=== PATIENT | male | born 1980 | race Caucasian/White ===

== ENCOUNTER → 2018-03-24 10:39 | Outpatient (CLI) | payer MEDICARE ==
[2016-09-03 12:40] VITALS: BMI 40.2
[~2018-03-24 10:39] MED LIST: CELEXA20 MG PO; PROTONIX40 MG PO; TEGRETOL 100 M100 MG PO
== END | disposition home or self-care (01) ==
LOC: D.CT 10:39
DX: R10.9 Unspecified abdominal pain (principal)

== ENCOUNTER → 2018-07-21 11:15 | Outpatient (CLI) | payer MEDICARE ==
[~2018-07-21] VITALS: Ht 177.8 cm; Wt 129.5 kg
--- NOTE | ~2018-07-21 | OP ---
PATIENT NAME: JOHAN JAY MEDICAL RECORD: [id number] :82 LOCATION:D.CAT ADMISSION DATE: SURGEON: KHRIS NO MD DATE OF OPERATION: 07/21/2018 PROCEDURES: Left heart catheterization, selective coronary angiography, post-intervention of right radial approach. CATHETERS: Include Clarington catheter and radial sheath. The procedure was tolerated. The patient returned to the ho. Sheath was removed. TR band was placed. FINDINGS: Left ventriculography in 30-degree JOSE view: Normal wall motion. Normal systolic function. CORONARY ANATOMY: For the left system, please note we had to use 4.0 guiding catheter for diagnostic. LEFT MAIN: Left main is free of disease. LAD: Free of disease in the diagonal system. CIRCUMFLEX: Free of disease in the marginal system. RIGHT CORONARY ARTERY: We were able to perform diagnostic using the Clarington catheter and this showed 80% stenosis in its proximal portion. IMPRESSION: Single-vessel disease involving right coronary. PLAN: Intervention of this vessel momentarily. Using the radial sheath, a [place] guiding catheter provided excellent guide catheter support followed by 300-cm Whisper wire was placed across the tightly occluded 80% right coronary down this portion of the vessel. Next, stent used was a 3.0 x 15-mm Integrity nondrug-eluting stent up to 14 atmospheres for 45 seconds. Final angiography showed excellent resolution of 80% stenosis with no significant residual. OLIVER flow was 3 throughout the procedure. Brilinta was loaded in the lab. Sheath was closed with TR band. TRANSINT:[id number] Voice Confirmation ID: [id number] DOCUMENT ID: [id number] KHRIS NO MD at 0843 CC: [id number] DICTATION DATE: 07/21/18 1506 STAINING MACHINE OPERATOR: 07/21/18 1600 DEP CLI 07/21/18 [address] [place] [address]
--- NOTE | ~2018-07-21 | HEMODYNAMI ---
PATIENT:JOHAN JAY MEDICAL RECORD: [id number] : 82 LOCATION:[facility] ADMISSION DATE: 07/21/18 Generatedon:07/21/201815:00 Patient name: JOHAN JAY Patient #: [id number] SSN: D OB: 1980 Date of study: 07/21/2018 Page: Of Hemodynamic Procedure Report Patient Data Patient Demographics Procedure consent was obtained First Name: JOHAN Gender: Male Last Name: PIERRE : 1980 Middle Initial: L Age: 38 year(s) Patient #: [id number] Race: Unknown Additional ID: [id number] Contact details [address]: [address] [place] [address] State: [place] City: [place] Zip code: [address] Past Medical History Allergies Allergen Reaction Date Comments Reported Codeine 09/03/2016 Codeine 07/21/2018 Admission Admission Data Admission Date: 07/21/2018 Admission Time: 11:15 Procedure Procedure Types Cath Procedure Diagnostic Procedure LHC LH w/Coronaries PCI Procedure Coronary Stent Coronary Stent Initial Procedure Description Procedure Date Procedure Date: 07/21/2018 Procedure Start Time: 14:31 Procedure End Time: 14:59 Procedure Staff Name Function Blayne Armenta MD Performing Physician Marie Kong RT Monitor Vish Thomas RN Nurse Karin Banks RT Scrub Procedure Data Cath Procedure Fluoroscopy Diagnostic fluoroscopy Total fluoroscopy Time: 7.4 time: 7.4 min min Diagnostic fluoroscopy Total fluoroscopy dose: dose: 1019 mGy 1019 mGy Contrast Material Contrast Material Type Amount (ml) Isovue 300 91 Entry Location Entry Primary Successful Side Size Upsize Upsize Entry Closure Telles ccessful Closure Location (Fr) 1 (Fr) 2 (Fr) Remarks Device Remarks Radial Right 6 Fr Mechanical artery Short Compression Estimated blood loss: 10 ml Diagnostic catheters Device Type Used For End Catheter Placement DIAGNOSTIC [place] 110cm 5 LV Angiography Fr catheter ([id number]) DIAGNOSTIC [place] 110cm 5 Right Coronary Fr catheter (196627) Angiography DIAGNOSTIC [place] 110cm 5 Left Coronary Fr catheter ([id number]) Angiography Procedure Complications No complications Procedure Medications Medication Administration Route Dosage 0.9% NaCl I.V. 100 ml/hr Oxygen etCO2 Nasal cannula 2 l/min Heparin Flush Bag added to field 2 bags (1000units/500ml NS) Lidocaine 2% added to field 20 Radial Cocktail added to field 1 syringe (Verapomil 2mg/Nitro 400mcg/Heparin 1500units) Refer to Anesthesia Notes for Sedation Medications Radial Cocktail I.A. 1 syringe (Verapomil 2mg/Nitro 400mcg/Heparin 1500units) Heparin Bolus I.V. 5000 units Integrilin (Bolus I.V. 11.3 ml 2mg/ml) Integrilin (Bolus wasted 8.7 ml 2mg/ml) Brilinta P.O. 180 mg Hemodynamics Rest Heart Rate: 88 (bpm) Pressure Samples Time Site Value (mmHg) Purpose Heart Use Rate(bpm) 14:35 LV 98/18,16 Snapshot 103 Gradients Valve Time Site Site Mean SEP/DFP Peak To Heart Use 1 2 (mmHg) (sec/min) Peak Rate (mmHg) (bpm) Aortic 14:35 LV AO 108 Snapshots Pre Cath Intra NCS Post Cath Vital Signs Time Heart Resp SPO2 etCO2 NIBP (mmHg) Rhythm Pain Sedation Rate (ipm) (%) (mmHg) Status Level (bpm) 14:04:37 81 13 100 30.8 102/68(81) NSR 0 (11) 10(A) , No pain 14:09:52 82 17 100 38.3 131/86(112) NSR 0 (11) 10(A) , No pain 14:14:37 87 15 98 42 121/76(107) NSR 0 (11) 10(A) , No pain 14:19:17 82 12 98 39.7 129/87(115) NSR 0 (11) 10(A) , No pain 14:24:00 81 19 98 21.7 138/87(113) NSR 0 (11) 10(A) , No pain 14:28:45 80 18 97 0 136/90(118) NSR 0 (11) 10(A) , No pain 14:33:34 110 11 98 20.2 97/62(79) NSR 0 (11) 9(A) , No pain 14:38:10 109 12 89 19.5 104/69(79) NSR 0 (11) 8(A) , No pain 14:42:53 106 13 89 18.7 107/58(79) NSR 0 (11) 8(A) , No pain 14:47:33 104 13 92 0 99/60(89) NSR 0 (11) 8(A) , No pain 14:52:14 101 12 95 10.5 101/51(78) NSR 0 (11) 10(A) , No pain 14:57:37 96 15 98 15 106/65(81) NSR 0 (11) 10(A) , No pain Medications Time Medication Route Dose Verified Delivered Reason Not es Effectiveness by by 14:02:29 0.9% NaCl I.V. 100 Vish Vish Per physician ml/hr William Thomas RN RN 14:02:40 Oxygen etCO2 2 l/min Vish Vish Per physician Nasal William Thomas cannula RN RN 14:02:51 Heparin Flush added 2 bags Vish Vish used for Bag to Lorvinny Lorvinny procedure (1000units/500ml field RN RN NS) 14:03:07 Lidocaine 2% added 20ml Vish Vish for local to vial Lorigan Lorigan anesthetic field RN RN 14:03:20 Radial Cocktail added 1 Vish Vish used for (Verapomil to syringe Lorigan Lorigan procedure 2mg/Nitro field RN RN 400mcg/Heparin 1500units) 14:29:29 Refer to Vish Vish for sedation Anesthesia Notes William Thomas for Sedation RN RN Medications 14:32:02 Radial Cocktail I.A. 1 Vish Blayne for (Verapomil syringe Lorigan Geovany vasodilation 2mg/Nitro RN 400mcg/Heparin 1500units) 14:49:16 Heparin Bolus I.V. 5000 Vish Vish for units Tatyanaigan William anticoagulation RN RN 14:49:34 Integrilin I.V. 11.3 ml Vish Vish for (Bolus 2mg/ml) Lorigan William antiplatelet RN RN therapy 14:49:51 Integrilin wasted 8.7 ml Vish Vish to sharp's (Bolus 2mg/ml) William Thomas RN RN 14:54:56 Brilinta P.O. 180 mg Vish Vish for Lorigan William antiplatelet RN RN therapy Procedure Log Time Note 13:43:04 Vish Thomas RN sent for patient. Start room use. 13:43:05 Time tracking: Regular hours (M-F 7:00 - 5:00) 13:43:09 Plan of Care:Hemodynamics will remain stable., Cardiac rhythm will remain stable., Comfort level will be maintained., Respiratory function will remain adequate., Patient/ family verbilizes understanding of procedure., Procedure tolerated without complication., Recovers from procedure without complications.. 13:52:41 Patient received from Pre/Post Procedure Room to CCL 1 Alert and oriented. Tansferred to table in Supine position. 13:52:43 Warm blankets applied, and florence hugger turned on for patient comfort. 13:52:43 Correct patient and procedure confirmed by team. 13:52:45 Signed procedure consent form obtained from patient. 13:52:46 ECG and BP/O2 sat monitors applied to patient. 13:52:47 Full Disclosure recording started 13:53:33 H&P Date Dictated: 07/14/2018 Within 30 days and on chart., H&P Addendum completed by physician on day of procedure. (MUST COMPLETE FOR ALL OUTPATIENTS). 14:02:29 0.9% NaCl 100 ml/hr I.V. was administered by Vish Thomas RN; Per physician; 14:02:40 Oxygen 2 l/min etCO2 Nasal cannula was administered by Vish Thomas RN; Per physician; 14:02:51 Heparin Flush Bag (1000units/500ml NS) 2 bags added to field was administered by Vish Thomas RN; used for procedure; 14:03:07 Lidocaine 2% 20ml vial added to field was administered by Vish Thomas RN; for local anesthetic; 14:03:20 Radial Cocktail (Verapomil 2mg/Nitro 400mcg/Heparin 1500units) 1 syringe added to field was administered by Vish Thomas RN; used for procedure; 14:03:26 Vital chart was started 14:07:41 Rhythm: sinus rhythm 14:07:44 Pre-procedure instructions explained to patient. 14:07:44 Pre-op teaching completed and patient verbalized understanding. 14:07:47 Family in patients room. 14:07:48 Patient NPO since Midnight. 14:07:56 Patient allergic to Codeine 14:07:59 Is the patient allergic to Iodine/contrast media? No. 14:08:02 Is patient on blood thinner?No 14:08:06 Patient diabetic? No. 14:08:43 ----Pre-sedation anethsthesia assessment.---- 14:09:31 SEE ANESTHESIA NOTES FOR PRE ASSESSMENT 14:09:35 Pre procedure: right dorsailis pedis pulse 2+ Normal; easily identifiable; not easily obliterated 14:09:38 Modified Josiah's test Ulnar < 7 seconds 14:09:40 Patient pain scale 0/10 ?. 14:09:48 IV patent on arrival in left forearm with 0.9% NaCl at O. 14:09:56 Lab results completed and on chart. 14:10:05 Right Radial & Right Groin area was prepped with chlora-prep and draped in sterile fashion 14:10:06 Alarms reviewed by R. N. 14:10:06 Sharps counted by scrub and verified by R.N. 14:10:13 Zero performed for pressure channel P1 14:10:21 Baseline sample Acquired. 14:10:40 Use device set Radial Dx or PCI 14:10:41 ACIST Syringe (02008) opened to sterile field. 14:10:42 Medline Cath Pack ([id number]) opened to sterile field. 14:10:42 Bag Decanter (2002) opened to sterile field. 14:10:43 DIAGNOSTIC WIRE .035 260cm J wire (936606) opened to sterile field. 14:10:44 ACIST Hand Control (58545) opened to sterile field. 14:10:44 ACIST Manifold (39257) opened to sterile field. 14:10:45 Tegaderm 4 x 4 (1626W) opened to sterile field. 14:10:46 MBrace Wrist Support ([id number]) opened to sterile field. 14:10:47 SHEATH 6Fr Prelude Radial ([id number]) opened to sterile field. 14:28:21 Final Timeout: patient, procedure, and site verified with staff and physician. All members of the team are in agreement. 14:28:28 Right Radial site verified by team. 14:28:31 Physical assessment completed. ASA score P 2 - A patient with mild systemic disease as per Blayne Armenta MD. 14:28:34 Sedation plan: IV Moderate Sedation Medication:Versed, Fentanyl 14:29:29 Refer to Anesthesia Notes for Sedation Medications was administered by Vish Thomas RN; for sedation; 14:30:59 Procedure started. 14:31:04 Local anesthetic to right radial artery with Lidocaine 2% by Blayne Armenta MD.INITIAL ACCESS ONLY 14:31:49 A 6 Fr Short sheath was inserted into the Right Radial artery 14:32:02 Radial Cocktail (Verapomil 2mg/Nitro 400mcg/Heparin 1500units) 1 syringe I.A. was administered by Blayne Armenta MD; for vasodilation; 14:32:47 A DIAGNOSTIC [place] 110cm 5 Fr catheter (641647) was advanced over the wire and used for LV Angiography. 14:35:35 LV gram done using JOSE 14:35:40 EF : 55 % 14:35:48 Injector settings: Ml/sec: 10, Volume: 20, 14:36:34 A DIAGNOSTIC [place] 110cm 5 Fr catheter (293501) was advanced over the wire and used for Right Coronary Angiography. 14:37:53 A DIAGNOSTIC [place] 110cm 5 Fr catheter (621024) was advanced over the wire and used for Left Coronary Angiography. UNABLE TO CANNULATE 14:37:54 Catheter removed. 14:38:49 GUIDE 6FR EBU 3.5 catheter ([id number]) opened to sterile field. 14:38:59 6 Fr EBU 3.5 guide catheter was inserted over the wire 14:40:42 Guide Catheter removed. unable to cannulate vessel. 14:40:52 6 Fr EBU 4.0 guide catheter was inserted over the wire 14:41:04 GUIDE 6FR EBU 4.0 guide catheter ([id number]) opened to sterile field. 14:44:59 LCA angiography performed. 14:46:18 Guide catheter removed. 14:46:[address] [place] PCI 14:46:57 GUIDE 6FR HS II catheter ([id number]) opened to sterile field. 14:46:59 INFLATOR Merit BasixCompak (DI0029) opened to sterile field. 14:47:01 WHISPER 300cm guide wire ([id number]) opened to sterile field. 14:47:31 6 Fr HS II guide catheter was inserted over the wire 14:49:16 Heparin Bolus 5000 units I.V. was administered by Vish Thomas RN; for anticoagulation; 14:49:26 WHISPER wire advanced. 14:49:34 Integrilin (Bolus 2mg/ml) 11.3 ml I.V. was administered by Vish Thomas RN; for antiplatelet therapy; 14:49:51 Integrilin (Bolus 2mg/ml) 8.7 ml wasted was administered by Vish Thomas RN; to sharp's; 14:51:40 Place stent Inflation Number: 1 A INTEGRITY OTW 3.0 X 12 stent ([id number]) was prepped and advanced across the Mid RCA. The stent was deployed at 14 RENARD for 0:26 (min:sec). 14:52:04 Stent catheter was removed intact over wire. 14:52:05 Wire removed. 14:52:05 Guide catheter removed. 14:52:16 Sheath removed intact; hemostasis achieved with Mechanical Compression to the Right Radial artery. 14:52:17 Procedure ended.(Physican Out) 14:52:29 TR BAND Large ([id number]) opened to sterile field. 14:52:34 Fluoroscopy time 07.40 minutes. 14:52:38 Flurop Dose total: 1019 14:52:38 Fluoroscopy dose: 1019 mGy 14:52:41 Contrast amount:Isovue 300 91ml. 14:52:42 Sharps counted by scrub and verified by R.N. 14:52:44 TR band inflated with 11cc of air. 14:52:45 Insertion/operative site no bleeding no hematoma. 14:52:54 Post right radial artery:stable, clean and dry 14:52:57 Post Procedure Pulses reassessed and unchanged 14:53:00 Post-procedure physical assessment completed. ASA score P 2 - A patient with mild systemic disease as per Blayne Armenta MD. 14:53:02 Post procedure rhythm: unchanged. 14:53:05 Estimated blood loss: 10 ml 14:53:06 Post procedure instruction explained to patient.Patient verbalizes understanding. 14:53:06 Patient needs reinforcement of post procedure teaching. 14:53:15 Procedure type changed to Cath procedure, Diagnostic procedure, LHC, LHC w/Coronaries, PCI procedure, Coronary Stent, Coronary Stent Initial 14:53:20 Procedure Complication : No complications 14:53:23 See physician's report for complete and final results. 14:54:56 Brilinta 180 mg P.O. was administered by Vish Thomas RN; for antiplatelet therapy; 14:55:16 Procedure and supply charges have been captured, reviewed, submitted and are correct. 14:59:46 Vital chart was stopped 14:59:49 Report given to Pre/Post Procedure Room. 14:59:52 Patient transfered to Pre/Post Procedure Room with Stretcher. 14:59:58 Procedure ended. 14:59:58 Full Disclosure recording stopped 15:00:03 End room use (Document Last) Intervention Summary Intervention Notes Time ActionType Lesion and Equipment Action# Pressure Duration Attributes Used 14:51:40 Place stent Mid RCA INTEGRITY 1 14 00:26 OTW 3.0 X 12 stent ([id number]) Device Usage Item Name Manufacture Quantity Catalog Number Hospital Part Current M inimal Lot# / Charge Number Stock Stock Serial# Code ACIST Syringe Acist 1 59236 345137 908334 950321 2 0 (64886) Medical Systems Inc Medline Cath Cardinal 1 [id number] 431785 09802 242118 5 280 North ([id number]) Bag Decanter Microtek 1 2001S 346923 09316 648223 5 (2001S) Medical Inc. DIAGNOSTIC WIRE [place] 1 792167 382356 587078 924697 3 0 .035 260cm J wire (846933) ACIST Hand Acist 1 14278 564898 129163 132298 5 Control (87102) Medical Systems Inc ACIST Manifold Acist 1 11355 197232 583420 239985 5 (11584) Medical Systems Inc Tegaderm 4 x 4 3M 1 1626W 142885 530965 858535 5 (1626W) MBrace Wrist Advanced 1 140-0250-00 564946 43701 961071 5 Support Vascular (150203857) Dynamics SHEATH 6Fr Merit 1 [id number] 135168 493911 647271 5 Prelude Radial Medical ([id number]) DIAGNOSTIC Terumo 1 75-9351 521321 349945 937299 5 [place] 110cm 5 Fr catheter (815089) GUIDE 6FR EBU Medtronic 1 [id number] 357980 85927 234694 3 3.5 catheter ([id number]) GUIDE 6FR EBU Medtronic 1 [id number] 310899 76633 111637 1 4.0 guide catheter (CN6HJQ54) GUIDE 6FR HS II Medtronic 1 HF9HLHL 153873 93317 522294 1 catheter ([id number]) INFLATOR Merit Merit 1 VK6164 116427 440016 982615 1 5 [facility] (SD0849) WHISPER 300cm [place]les 1 [id number] 832571 750390 011158 5 guide wire Vascular ([id number]) INTEGRITY OTW Medtronic 1 [id number] 799774 308440 4 [id number] 3.0 X 12 stent ([id number]) TR BAND Large Terumo 1 [id number] 086860 655570 243979 4 0 ([id number]) Signature Audit [place] Stage Time Signature Unsigned Intra-Procedure 07/21/2018 Marie 3:00:16 PM Counts RT(R) Signatures Monitor : Marie Signature : Counts RT Date : Time : [id number] [place] [address]
[~2018-07-21 11:15] MED LIST changes: +ATARAX 25 MG TA25 MG PO; +BAYER CHEWABLE81 MG PO; +BRILINTA90 MG PO; +ZOLOFT25 MG PO
[2018-07-21 11:42] VITALS: BP 127/96; Ht 177.8 cm; Wt 129.5 kg
[2018-07-21 11:47] LABS: BASOPHILS 0.2 % (0-2); EOSINOPHILS 4.7 % (0-7); HEMATOCRIT 41.3 % (42.0-54.0); HEMOGLOBIN 14.1 g/dL (13.5-17.5); IMMATURE GRANULOCYTES 0.5 % (0-5); LYMPHOCYTES 25.1 % (15-50); MCH 29.8 pg (26.0-34.0); MCHC 34.1 g/dL (31.0-37.0); MCV 87.3 fL (80.0-100.0); MEAN PLATELET VOLUME 9.2 fL (7.4-10.4); MONOCYTES 7.9 % (2-11); NEUTROPHILS 61.6 % (40-80); PLATELET COUNT 217 10x3/uL (130-400); RBC 4.73 10x6/uL (4.20-6.10); RDW 14.6 % (11.5-14.5); WBC 8.1 10x3/uL (4.8-10.8)
[2018-07-21 11:58] LABS: CALC OSMOLALITY 264 mosm/kg (275-300); CALCIUM 8.4 mg/dL (8.5-10.1); CARBON DIOXIDE 25.6 mmol/L (21.0-32.0); CHLORIDE - SERUM 100 mmol/L (98-107); CREATININE - SERUM 0.7 mg/dL (0.6-1.3); GLUCOSE 103 mg/dL (74-106); POTASSIUM - SERUM 3.8 mmol/L (3.5-5.1); SODIUM 133 mmol/L (136-145); UREA NITROGEN 9 mg/dL (7-18); eGFR NON AFRICAN AMERICAN > 90 mL/min (90-120)
== END | disposition home or self-care (01) ==
LOC: D.CATH 11:15
PROVIDERS: Internal Medicine Interventional Cardiology
DX: I25.119 Atherosclerotic heart disease of native coronary artery with unspecified angina pectoris (principal); Z01.812 Encounter for preprocedural laboratory examination

== ENCOUNTER 2020-01-14 14:06 | Emergency (ER) | payer MEDICARE, MEDICAID ==
[~2020-01-14] VITALS: Ht 177.8 cm; Wt 136.4 kg
[~2020-01-14 14:06] MED LIST changes: +ALBUTEROL SULF8.5 GM INH; +ALBUTEROL2.5 MG/3 M INH; +TALWIN NX1 TAB PO; +VOLTAREN75 MG PO
[2020-01-14 14:14] VITALS: Ht 177.8 cm; Wt 136.4 kg
[2020-01-14 15:40] LABS: BASOPHILS 0.2 % (0-2); EOSINOPHILS 4.3 % (0-7); HEMATOCRIT 40.5 % (42.0-54.0); HEMOGLOBIN 13.4 g/dL (13.5-17.5); IMMATURE GRANULOCYTES 0.3 % (0-5); LYMPHOCYTES 28.7 % (15-50); MCH 29.7 pg (26.0-34.0); MCHC 33.1 g/dL (31.0-37.0); MCV 89.8 fL (80.0-100.0); MONOCYTES 10.7 % (2-11); NEUTROPHILS 55.8 % (40-80); PLATELET COUNT 196 10x3/uL (130-400); RBC 4.51 10x6/uL (4.20-6.10); RDW 14.5 % (11.5-14.5)
[2020-01-14 15:51] LABS: CALC OSMOLALITY 282 mosm/kg (275-300); CALCIUM 8.4 mg/dL (8.5-10.1); CARBON DIOXIDE 25.4 mmol/L (21.0-32.0); CHLORIDE - SERUM 107 mmol/L (98-107); CREATININE - SERUM 0.8 mg/dL (0.6-1.3); GLUCOSE 122 mg/dL (74-106); POTASSIUM - SERUM 3.4 mmol/L (3.5-5.1); SODIUM 142 mmol/L (136-145); UREA NITROGEN 11 mg/dL (7-18); eGFR NON AFRICAN AMERICAN > 90 mL/min (90-120)
[2020-01-14 15:58] LABS: ALBUMIN 3.4 g/dL (3.4-5.0); ALKALINE PHOSPHATASE 60 U/L (30-120); ALT (SGPT) 59 U/L (10-68); BILIRUBIN - TOTAL 0.17 mg/dL (0.2-1.3); PROTEIN - SERUM 7.4 g/dL (6.4-8.2)
[2020-01-14] MEDS ORDERED: ALBUTEROL SULF8.5 GM INH (16:05)
[2020-01-14] MEDS ORDERED: LEVAQUIN750 MG PO (16:05)
[2020-01-14] MEDS ORDERED: MUCINEX DM ER1 EAC1 PO (16:05)
[2020-01-14] MEDS ORDERED: STERAPRED DS 1010 MG PO (16:05)
[2020-01-14 16:28] VITALS: BP 153/87
== END 2020-01-14 16:29 | disposition home or self-care (01) ==
LOC: D.ER 14:06
PROVIDERS: Family Medicine
DX: J06.9 Acute upper respiratory infection, unspecified (principal); R09.89 Other specified symptoms and signs involving the circulatory and respiratory systems; Z86.73 Personal history of transient ischemic attack (TIA), and cerebral infarction without residual deficits; I25.2 Old myocardial infarction; J45.909 Unspecified asthma, uncomplicated; K21.9 Gastro-esophageal reflux disease without esophagitis

== ENCOUNTER 2020-04-04 08:23 | Emergency (ER) | payer MEDICARE, MEDICAID ==
[~2020-04-04] VITALS: Ht 177.8 cm; Wt 136.4 kg
[~2020-04-04 08:23] MED LIST changes: +LEVAQUIN750 MG PO; +MUCINEX DM ER1 EAC1 PO; +STERAPRED DS 1010 MG PO
[2020-04-04 08:31] VITALS: Ht 177.8 cm; Wt 136.4 kg
[2020-04-04] MEDS ORDERED: NAPROSYN500 MG PO (09:22)
[2020-04-04] MEDS ORDERED: ULTRAM50 MG PO (09:22)
[2020-04-04 09:36] VITALS: BP 135/76
== END 2020-04-04 09:37 | disposition home or self-care (01) ==
LOC: D.ER 08:23
DX: S56.911A Strain of unspecified muscles, fascia and tendons at forearm level, right arm, initial encounter (principal); M25.521 Pain in right elbow; X58.XXXA Exposure to other specified factors, initial encounter; Z86.73 Personal history of transient ischemic attack (TIA), and cerebral infarction without residual deficits; I25.2 Old myocardial infarction; K21.9 Gastro-esophageal reflux disease without esophagitis; Z72.0 Tobacco use

== ENCOUNTER 2020-05-02 08:02 | Day surgery (SDC) | payer MEDICARE, MEDICAID ==
[2020-04-30 10:34] LABS: HEMOGLOBIN 14.6 g/dL (13.5-17.5); MCHC 32.4 g/dL (31.0-37.0); MCV 92.6 fL (80.0-100.0); RBC 4.86 10x6/uL (4.20-6.10); RDW 14.2 % (11.5-14.5); WBC 9.3 10x3/uL (4.8-10.8)
[2020-04-30 10:45] LABS: CALC OSMOLALITY 259 mosm/kg (275-300); CALCIUM 8.2 mg/dL (8.5-10.1); CARBON DIOXIDE 29.1 mmol/L (21.0-32.0); CHLORIDE - SERUM 96 mmol/L (98-107); GLUCOSE 106 mg/dL (74-106); POTASSIUM - SERUM 3.7 mmol/L (3.5-5.1); SODIUM 131 mmol/L (136-145); UREA NITROGEN 5 mg/dL (7-18); eGFR NON AFRICAN AMERICAN 89 mL/min (90-120)
[~2020-05-02] VITALS: Ht 177.8 cm; Wt 136.1 kg
[~2020-05-02 08:02] MED LIST changes: +NAPROSYN500 MG PO; +ULTRAM50 MG PO
[2020-05-02 08:30] VITALS: BP 141/81; Ht 177.8 cm; Wt 136.1 kg
--- NOTE | 2020-05-02 08:42 | NUR ---
PT HAD A EPISODE OF EMESIS AFTER ADMINISTERING PRE-OP MEDS. WILL PAGE ANESTHESIA.
--- NOTE | 2020-05-02 08:49 | NUR ---
PT VOMITED 2 MINUTES AFTER RECIEVING PO MEDICATIONS. DR HALE CALLED AT THIS TIME, DR HALE AT BEDSIDE AT THIS TIME TO EVALUATE PT.
--- NOTE | 2020-05-02 09:00 | NUR ---
DR HALE ADMINISTERED VERSED 2MG IV AT [facility] AT THIS TIME, PT PLACED ON BP AND CONTINIOUS PULSE OX AT THIS TIME.
--- NOTE | 2020-05-02 09:22 | NUR ---
PT RESTING COMFORTABLY AT THIS TIME, RR EVEN AND UNLABORED, 02 96%, HR 112.
[2020-05-02] MEDS ORDERED: DILAUDID2 MG PO (11:07)
--- NOTE | 2020-05-07 14:56 | OP ---
PATIENT NAME: JOHAN JAY MEDICAL RECORD: [id number] :82 LOCATION:D.OPS ADMISSION DATE: SURGEON: SHELLI MACARIO MD DATE OF OPERATION: 05/02/2020 PREOPERATIVE DIAGNOSIS: Impingement syndrome of the left shoulder with a labral tear. POSTOPERATIVE DIAGNOSIS: Impingement syndrome of the left shoulder with a labral tear. PROCEDURES: 1. Arthroscopic distal clavicle excision done through separate incision, 1 cm, left shoulder. 2. Arthroscopic labral and glenohumeral debridement. 3. Arthroscopic subacromial decompression, acromioplasty and bursectomy. SURGEON: Shelli Macario MD ANESTHESIA: General. INTRAOPERATIVE COMPLICATIONS: None. SUMMARY OF PATHOLOGIC FINDINGS: The patient did have some labral tearing; however, the labral tearing was on the inner peripheral rim and required just debridement. 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 OPERATIVE SUMMARY IN DETAIL: After obtaining the appropriate preoperative orthopedic surgery consent as well as anesthetic consultation, evaluation and clearance, the patient was brought to the operating room and placed on the operating table in supine position. After general laryngeal mask airway was administered, the patient was placed in a left lateral decubitus position. All pressure points were well padded to include down peroneal pad as well as axillary roll. The patient was held firmly to the operating table using the vacuum pack suction system. Right upper extremity and shoulder were then prepped and draped in routine sterile fashion. The arm was held in the Arthrex traction boom at 30 degrees of forward flexion, 30 degrees of abduction, 10 pounds of traction laterally. Arthroscopy was established in the glenohumeral joint from the posterior portal, anterior portal was established in the anterior safe interval. Diagnostic arthroscopy showed the patient had some mild labral tearing. A resector was then utilized to gently take down the portions of labral tearing which were primarily superiorly and anterior. Having completed this, attention was turned to the subacromial space. While on subacromial space, accessory lateral portal was created through which [place] tissue ablation system was utilized to denude the undersurface of the acromion of all soft tissue elements and release the coracoacromial ligament. A 5-0 barrel bur was then used to perform acromioplasty at the level of acromioclavicular joint to create a type 1 acromion from a type 3. Having completed this, attention was turned to distal clavicle excision through an arthroscopic portal anteriorly under separate portal in arthroscopic visualization, distal 1 cm of the collar bone was resected. Having completed this, arthroscopy portals were closed in routine interrupted fashion using 4-0 Prolene. Sterile dressings were applied. The patient was awakened, taken to recovery room in stable condition. All final OPERATIVE REPORT [id number] JOHAN JAY needle and sponge counts were correct. TRANSINT:[id number] Voice Confirmation ID: [id number] DOCUMENT ID: [id number] AMIRAH MEDINA, SHELLI VILLEGAS at 1456 CC: [id number] DICTATION DATE: 05/07/20 0946 HEEL SHAVER: 05/07/20 1430 [facility] 05/02/20 [facility] [address] [place] [address]
== END 2020-05-02 12:40 | disposition home or self-care (01) ==
LOC: D.OPS 08:02 → D.PAN 10:45 → D.OPS 11:00
PROVIDERS: Anesthesiology; ATTEND Orthopaedic Surgery
DX: M25.511 Pain in right shoulder (principal); M25.521 Pain in right elbow; M75.101 Unspecified rotator cuff tear or rupture of right shoulder, not specified as traumatic; M75.41 Impingement syndrome of right shoulder; M13.811 Other specified arthritis, right shoulder; K21.9 Gastro-esophageal reflux disease without esophagitis

== ENCOUNTER 2020-06-30 10:59 | Emergency (ER) | payer MEDICARE, MEDICAID ==
[~2020-06-30] VITALS: Ht 177.8 cm; Wt 136.4 kg
[~2020-06-30 10:59] MED LIST changes: +DILAUDID2 MG PO
[2020-06-30 11:11] VITALS: Ht 177.8 cm; Wt 136.4 kg
[2020-06-30 11:40] LABS: BILIRUBIN NEGATIVE (NEGATIVE); GLUCOSE NEGATIVE (NEGATIVE); KETONE NEGATIVE (NEGATIVE); NITRITE NEGATIVE (NEGATIVE); UROBILINOGEN NORMAL (NORMAL)
[2020-06-30 11:50] LABS: UDS - AMPHET NEGATIVE QUAL (NEGATIVE); UDS - BARB NEGATIVE QUAL (NEGATIVE); UDS - BENZO NEGATIVE QUAL (NEGATIVE); UDS - COCAINE NEGATIVE QUAL (NEGATIVE); UDS - OPIATE NEGATIVE QUAL (NEGATIVE); UDS - PCP NEGATIVE QUAL (NEGATIVE); UDS - THC NEGATIVE QUAL (NEGATIVE)
[2020-06-30 12:01] LABS: BASOPHILS 0.2 % (0-2); EOSINOPHILS 2.6 % (0-7); HEMATOCRIT 41.4 % (42.0-54.0); HEMOGLOBIN 13.4 g/dL (13.5-17.5); LYMPHOCYTES 26.9 % (15-50); MCH 29.3 pg (26.0-34.0); MCHC 32.4 g/dL (31.0-37.0); MCV 90.6 fL (80.0-100.0); MONOCYTES 6.5 % (2-11); NEUTROPHILS 63.8 % (40-80); PLATELET COUNT 202 10x3/uL (130-400); RBC 4.57 10x6/uL (4.20-6.10); RDW 14.7 % (11.5-14.5); WBC 6.5 10x3/uL (4.8-10.8)
[2020-06-30 12:11] LABS: CALC OSMOLALITY 275 mosm/kg (275-300); CALCIUM 8.3 mg/dL (8.5-10.1); CARBON DIOXIDE 26.7 mmol/L (21.0-32.0); CHLORIDE - SERUM 105 mmol/L (98-107); CREATININE - SERUM 0.8 mg/dL (0.6-1.3); GLUCOSE 105 mg/dL (74-106); POTASSIUM - SERUM 3.7 mmol/L (3.5-5.1); SODIUM 139 mmol/L (136-145); UREA NITROGEN 8 mg/dL (7-18); eGFR NON AFRICAN AMERICAN > 90 mL/min (90-120)
[2020-06-30 12:16] LABS: ALBUMIN 3.3 g/dL (3.4-5.0); ALKALINE PHOSPHATASE 68 U/L (30-120); ALT (SGPT) 61 U/L (10-68); BILIRUBIN - TOTAL 0.23 mg/dL (0.2-1.3); MAGNESIUM - SERUM 1.9 mg/dL (1.8-2.4); PROTEIN - SERUM 7.1 g/dL (6.4-8.2)
--- NOTE | 2020-06-30 12:25 | NUR ---
According to the suicide assessment the patient rates high for suicide risk and he will require 1:1 observation. Provide him a safety plan and a suicide resource flyer.
[2020-06-30 17:09] VITALS: BP 131/79
== END 2020-06-30 17:23 ==
LOC: D.ER 10:59
PROVIDERS: Family Medicine
DX: R45.851 Suicidal ideations (principal); F32.9 Major depressive disorder, single episode, unspecified; I25.2 Old myocardial infarction; Z95.5 Presence of coronary angioplasty implant and graft; I25.10 Atherosclerotic heart disease of native coronary artery without angina pectoris; J45.909 Unspecified asthma, uncomplicated; K21.9 Gastro-esophageal reflux disease without esophagitis; F17.210 Nicotine dependence, cigarettes, uncomplicated

== ENCOUNTER 2020-07-25 13:46 | Emergency (ER) | payer MEDICARE, MEDICAID ==
[~2020-07-25] VITALS: Ht 177.8 cm; Wt 131.8 kg
[2020-07-25 14:05] VITALS: Ht 177.8 cm; Wt 131.8 kg
[2020-07-25 14:33] LABS: BASOPHILS 0.3 % (0-2); EOSINOPHILS 2.5 % (0-7); HEMATOCRIT 45.2 % (42.0-54.0); HEMOGLOBIN 14.9 g/dL (13.5-17.5); IMMATURE GRANULOCYTES 0.5 % (0-5); LYMPHOCYTES 25.7 % (15-50); MCH 29.6 pg (26.0-34.0); MCV 89.9 fL (80.0-100.0); MEAN PLATELET VOLUME 9.2 fL (7.4-10.4); MONOCYTES 6.1 % (2-11); NEUTROPHILS 64.9 % (40-80); RBC 5.03 10x6/uL (4.20-6.10); WBC 7.6 10x3/uL (4.8-10.8)
[2020-07-25 14:35] LABS: CALC OSMOLALITY 275 mosm/kg (275-300); CALCIUM 8.9 mg/dL (8.5-10.1); CARBON DIOXIDE 24.9 mmol/L (21.0-32.0); CHLORIDE - SERUM 102 mmol/L (98-107); CREATININE - SERUM 0.9 mg/dL (0.6-1.3); GLUCOSE 114 mg/dL (74-106); SODIUM 138 mmol/L (136-145); UREA NITROGEN 11 mg/dL (7-18); eGFR NON AFRICAN AMERICAN > 90 mL/min (90-120)
[2020-07-25 14:36] LABS: PLATELET COUNT 266 10x3/uL (130-400)
[2020-07-25 14:48] LABS: APTT 29.8 SECONDS (22.8-39.4); INR 1.01 (0.85-1.17); PROTIME 13.2 SECONDS (11.6-15.0)
[2020-07-25 14:50] LABS: ALBUMIN 3.7 g/dL (3.4-5.0); ALKALINE PHOSPHATASE 74 U/L (30-120); ALT (SGPT) 79 U/L (10-68); BILIRUBIN - TOTAL 0.43 mg/dL (0.2-1.3); CREATINE KINASE 110 UL (21-232); MAGNESIUM - SERUM 2.1 mg/dL (1.8-2.4); PROTEIN - SERUM 8.1 g/dL (6.4-8.2)
[2020-07-25 15:00] LABS: TROPONIN-I < 0.017 ng/mL (0.000-0.060)
[2020-07-25] MEDS ORDERED: ALBUTEROL SULF8.5 GM INH (18:27)
[2020-07-25 18:44] VITALS: BP 132/92
== END 2020-07-25 18:44 | disposition home or self-care (01) ==
LOC: D.ER 13:46
PROVIDERS: Family Medicine
DX: J45.901 Unspecified asthma with (acute) exacerbation (principal); F41.9 Anxiety disorder, unspecified; I25.2 Old myocardial infarction; Z95.5 Presence of coronary angioplasty implant and graft; I25.10 Atherosclerotic heart disease of native coronary artery without angina pectoris; K21.9 Gastro-esophageal reflux disease without esophagitis